=== PATIENT | female | born 1970 | race Caucasian/White ===

== ENCOUNTER 2020-09-29 06:15 | Day surgery (SDCO) | payer OTHER ==
[~2020-09-29] VITALS: Ht 162.6 cm; Wt 84.4 kg
[2020-09-29 06:53] LABS: BASOPHIL 0.1 % (0-2); EOSINOPHIL 0.2 % (0-5); HCT 41.9 % (37.0-47.0); HGB 14.6 g/dl (12.5-16.0); LYMPHOCYTE 7.5 % (15-48); MCH 31.1 pg (25.0-31.0); MCHC 34.8 g/dL (32.0-36.0); MCV 89.1 fL (78.0-100.0); MONOCYTE 10.8 % (0-12); MPV 10.1 fL (6.0-9.5); NEUTROPHIL 81.1 % (41-80); NRBC 0; PLT 201 K/uL (150-400); RDW 13.3 % (11.5-14.0); WBC 11.6 K/uL (4.0-10.5)
[2020-09-29 07:20] LABS: ALBUMIN 3.7 g/dL (3.4-5.0); BILIRUBIN - TOTAL 0.8 mg/dL (0.2-1.0); BUN/CREAT RATIO (CALC) 9.7 RATIO; CREATININE 0.72 mg/dL (0.51-0.95); GLOBULIN (CALCULATION) 2.9 g/dL; POTASSIUM 3.6 mmol/L (3.5-5.1); TOTAL PROTEIN 6.6 g/dL (6.4-8.2)
[2020-09-29 07:25] LABS: LACTIC ACID 0.6 mmol/L (0.4-1.9)
[2020-09-29 09:58] LABS: CORONAVIRUS 2019 SARS-COV-2 NEGATIVE (NEGATIVE); INFLUENZA A NAA NEGATIVE (NEGATIVE)
[2020-09-29] MEDS ORDERED: WELLBUTRIN XL150 MG PO (09:59)
[2020-09-29] MEDS ORDERED: NASACORT16.9 ML (10:00)
[2020-09-30] MEDS ORDERED: COLACE100 MG PO (13:01)
[2020-09-30] MEDS ORDERED: OXY-IR 5MG5 MG PO (13:01)
[2020-09-30] MEDS ORDERED: MOTRIN600 MG PO (13:01)
[2020-09-30] MEDS ORDERED: ACETAMINOPHEN500 M1 PO (13:01)
[2020-09-30] MEDS ORDERED: OXYCODONE HCL10 MG PO (13:20)
[2020-09-30] MEDS ORDERED: NORCO 5-325 TA1 EACH PO (16:44)
[2020-09-30] MEDS ORDERED: ZOFRAN4 M1 PO (16:44)
[2020-09-30] MEDS ORDERED: AUGMENTIN 875-1 EACH PO (16:45)
== END 2020-09-30 18:40 | disposition home or self-care (01) ==
LOC: FER 06:15 → FMS 09:04
PROVIDERS: Emergency Medicine; Emergency Medicine Emergency Medical Services; ADMIT Hospitalist
DX: K35.30 Acute appendicitis with localized peritonitis, without perforation or gangrene (principal); E66.9 Obesity, unspecified; Z68.31 Body mass index [BMI] 31.0-31.9, adult; Z79.899 Other long term (current) drug therapy; Z20.822 Contact with and (suspected) exposure to COVID-19
CPT/HCPCS: 36415; 80053; 83605; 83690; 84145; 85025; G0378; J1100; J1170; J1644; J2250; J2270; J2405; J2543; J2704; J2710; J3010; J7030; J7120; Q9967; U0002